=== PATIENT | male | born 1940 | race Caucasian/White ===

== ENCOUNTER 2017-01-20 08:38 | Day surgery (SDC) | payer OTHER ==
[2017-01-20] MEDS ORDERED: Lactated Ringer's 500 ML IV ONE (09:31)
[2017-01-20] MEDS ORDERED: Propofol 10 mg/ml Inj (20 ML) ONE (10:16)
[2017-01-20 10:53] VITALS: TEMP 97.5
[2017-01-20 11:18] VITALS: BP 112/63; PULSE 50; RESP 14; O2SAT 99
== END 2017-01-20 11:18 | disposition home or self-care (01) ==
LOC: H.ENDO 08:38
PROVIDERS: ATTEND Internal Medicine Gastroenterology
DX: Z12.11 Encounter for screening for malignant neoplasm of colon (principal); I25.10 Atherosclerotic heart disease of native coronary artery without angina pectoris; E66.9 Obesity, unspecified; I10 Essential (primary) hypertension; K64.8 Other hemorrhoids